=== PATIENT | female | born 1940 | race African-American/Black ===

== ENCOUNTER 2016-05-02 06:31 | Observation (INO) | payer BC ==
[2016-04-28 12:18] LABS: HEMATOCRIT 41.7 % (36.0-48.0); HEMOGLOBIN 13.5 g/dL (12.0-16.0)
[2016-04-28 12:50] LABS: ALBUMIN 3.9 G/DL (3.5-5.0); ALKALINE PHOSPHATASE 79 U/L (45-117); BUN (BLOOD UREA NITROGEN) 21 MG/DL (6-23); CALCIUM, SERUM 9.8 MG/DL (8.5-10.4); CHLORIDE, SERUM 108 MMOL/L (96-112); CO2 (CARBON DIOXIDE) 24 MMOL/L (24-34); CREATININE 1.25 MG/DL (0.55-1.02); GFR AFRICAN AMERICAN 49 ML/MIN (>=60); GFR NON AFRICAN AMERICAN 42 ML/MIN (>=60); GLUCOSE, SERUM 73 MG/DL (60-99); POTASSIUM, SERUM 3.9 MMOL/L (3.5-5.3); SGOT(AST) 17 U/L (5-40); SGPT(ALT) 38 U/L (5-65); SODIUM, SERUM 141 MMOL/L (135-148); TOTAL BILIRUBIN 0.4 MG/DL (0-1.2); TOTAL PROTEIN 7.9 G/DL (6.0-8.5)
--- NOTE | ~2016-05-02 | OP ---
Record Of Operation [facility] [address] [place]. [address] NAME: MARIA R TURCIOS : 40 STATUS : ADM IN PAT#: [id number] AGE: 75 ADM/REG DATE : 05/02/16 MR#: [id number] REPORT SERV DATE: 05/02/16 DICTATED BY: BRYCE JAVED DATE: 05/02/16 REPORT STATUS : Draft TRANSCRIBED BY: MODL DATE: 05/02/16 DATE OF PROCEDURE: 05/02/2016 PREOPERATIVE DIAGNOSIS: Primary hyperparathyroidism. POSTOPERATIVE DIAGNOSIS: Primary hyperparathyroidism. PROCEDURE: Bilateral cervical exploration for parathyroidectomy. SURGEON: Bryce Javed M.D. RESIDENT SURGEON: Kasie Rivas MD ANESTHESIA: General. ESTIMATED BLOOD LOSS: 10 mL. BRIEF HISTORY AND DESCRIPTION FINDINGS: The patient was identified with clear biochemical primary hyperparathyroidism. She also had a history of osteopenia, chronic kidney disease, but no stones. Preoperative sestamibi and ultrasound had been negative as well as localization studies intraoperatively, the left superior parathyroid gland was never identified. DETAILS OF PROCEDURE: The patient arrived in the operating suite, was placed on the table in supine position. General anesthesia obtained via the endotracheal tube. The patient appropriately positioned. The neck and upper chest were prepped and draped in a sterile manner. A cervical collar incision was performed. Subplatysmal flaps were elevated with blunt dissection and cautery. Strap muscles were split in the midline. A plane dissection was created between the right thyroid lobe and overlying strap muscles. Middle thyroid vein branches were divided between clips, allowing the right lobe to be rotated anteromedially. The superior gland was not initially identified, but ultimately was identified very high along the union of the superior pole vessels and the superior pole. It appeared totally unremarkable in size, color, and texture. Recurrent nerve was clearly identified and dissection maintained anteromedial to it and at the inferior pole of the tongue of the thymus again normal parathyroid was identified. Attention was then turned to the left, which was mobilized similarly. The inferior gland was identified in the mirror image location at the inferior pole of the tongue of the thymus. It again appeared normal leaving the left superior gland unidentified. It was searched for, along the posterior lateral aspect of the midportion, one nodular area suspicious for parathyroid along the posterolateral mid left lobe was mobilized and divided with cautery and vessels with clips and sent for frozen section which confirmed thyroid tissue, not parathyroid. Continued dissection particularly with attention to the upper pole given the location of the upper gland on the right was totally unfruitful, taking dissection several centimeters cephalad to the superior pole. Continued dissection in the tracheoesophageal groove, both above the inferior thyroid artery and posteriorly even inferior to the inferior gland did not identify any parathyroid tissue. The recurrent laryngeal nerve was referred to frequently during Record Of Operation [address] [address] NAME: MARIA R TURCIOS : 40 STATUS : ADM IN PAT#: [id number] AGE: 75 ADM/REG DATE : 05/02/16 MR#: [id number] REPORT SERV DATE: 05/02/16 DICTATED BY: BRYCE JAVED DATE: 05/02/16 REPORT STATUS : Draft TRANSCRIBED BY: SYLVESTER DATE: 05/02/16 this dissection. Ultimately, the inferior thyroid artery was clipped as were its branches in hopes of rendering the missing superior gland ischemic. Hemostasis was excellent. Surgicel was placed in tracheoesophageal groove and along the left lobe anteriorly. The strap muscle approximated with 3-0 Vicryl, platysma with 4-0 Vicryl. Skin closed with subcuticular with 5-0 Monocryl. Sterile dressing applied, and the patient awakened, extubated, and taken to PACU. /SYLVESTER Bryce Javed M.D. / [id number] CC: Sher Cantrell M.D.
[~2016-05-02 06:31] MED LIST: 8 HOUR650 MG PO; COZAAR100 MG PO; FISH-EPA1000 MG PO; FLECAINIDE50 MG PO; MICARDIS HCT PO; MULTIPLE VIT PO; NORV25 PO; P1 PO; VITAMIN D31000 UNIT PO; [UNRECOGNIZED DRUG - OTHER] PO
[2016-05-02 07:49] LABS: PTH (INTRAOPERATIVE) 163.2 PG/ML (10.0-65.0); PTH TAT 0 Hrs 00 Mins
[2016-05-02 10:54] LABS: PTH (INTRAOPERATIVE) 192.1 PG/ML (10.0-65.0); PTH TAT 0 Hrs 00 Mins
== END 2016-05-03 13:21 | disposition home or self-care (01) ==
LOC: SDC 06:31 → 5SO 16:03
PROVIDERS: Specialist
PROC: 0GJR0ZZ Inspection of Parathyroid Gland, Open Approach (ICD-10-PCS; principal; 2016-05-02 08:30)
DX: E21.0 Primary hyperparathyroidism (principal); E78.5 Hyperlipidemia, unspecified; M19.90 Unspecified osteoarthritis, unspecified site; I12.9 Hypertensive chronic kidney disease with stage 1 through stage 4 chronic kidney disease, or unspecified chronic kidney disease; N18.9 Chronic kidney disease, unspecified; K21.9 Gastro-esophageal reflux disease without esophagitis; Z98.890 Other specified postprocedural states; Z90.710 Acquired absence of both cervix and uterus; Z90.49 Acquired absence of other specified parts of digestive tract; Z82.49 Family history of ischemic heart disease and other diseases of the circulatory system; Z83.49 Family history of other endocrine, nutritional and metabolic diseases; Z88.5 Allergy status to narcotic agent; Z88.1 Allergy status to other antibiotic agents; Z79.899 Other long term (current) drug therapy; Z98.41 Cataract extraction status, right eye; Z98.42 Cataract extraction status, left eye
CPT/HCPCS: 80053; 82310; 83970; 85014; 85018; 88305; 88331; 93005; 96374; A9270-GY; G0378; J0690; J2250; J2370; J2405; J2710; J3010